=== PATIENT | male | born 1995 | race Caucasian/White ===

== ENCOUNTER 2017-02-18 13:21 | Emergency (ER) | payer SELFPAY ==
[2017-02-18 13:36] VITALS: BP 125/68
--- NOTE | 2017-02-18 13:47 | ED Physician Documentation ---
General Adult - HISTORIAN Historian: patient, spouse, child - HPI Stated Complaint: laceration Chief Complaint: Laceration/Recheck/Suture Additional Information: O'6 CM LAC LT INDEX FINGERANDO.5 CM LAC WEB BETWEEN FINGERS 4-5 WHEN PT HIT WALL W. FIST. DENIES OTHER INJURY Onset: hours (1) Timing: still present Severity: mild, moderate (MOD BLEEDING AFTERWARD) - ROS CONST: no problems EYES/ENT: none CVS/RESP: none GI/: none MS/SKIN/LYMPH: none NEURO/PSYCH: denies: headache, fainting, dizziness - PAST HX Past History: asthma Surgeries/Procedures: other (APPY) Allergies/Adverse Reactions: Allergies Allergy/AdvReac Type Severity Reaction Status Date / Time walnuts Allergy Uncoded 02/18/17 13:38 Home Medications: Ambulatory Orders Medication Instructions Recorded NK [NK] 03/22/16 - SOCIAL HX Smoking History: non-smoker Alcohol Use: occasionally Drug Use: none - FAMILY HX Family History: No - VITAL SIGNS Vital Signs: Vital Signs Temp Pulse Resp BP Pulse Ox 98.4 F 74 16 125/68 95 02/18/17 13:31 02/18/17 13:31 02/18/17 13:31 02/18/17 13:31 02/18/17 13:31 - REVIEWED ASSESSMENTS Nursing Assessment Reviewed: Yes Vitals Reviewed: Yes Procedures Wound Location: upper extremity (AREAS CLEANSE BETADINE EXP FOR BODY NONE FOUND. APROX W/ SKIN ADHESIVE. DIRK WELL. PT GIVEN TET IMMUN) Betadine Prep?: Yes Wound Repaired With: Dermabond Layer Closure?: No Sterile Dressing Applied?: Yes Splint Applied?: Yes Sling Applied?: No (NOT GET DIRTY OR WET FIR 3-4 DAYS) ED Results Lab/Radiology - Orders Orders: ED Orders Category Date Time Status Skin Adhesive NOW Care 02/18/17 13:45 Ordered Diph,Pertuss(Acell),Tet Vac/Pf [Adacel] Med 02/18/17 13:44 Once 0.5 ml IM .ONCE ONE General Adult Physical Exam - PHYSICAL EXAM GENERAL APPEARANCE: mild distress EENT: eye inspection normal NECK: normal inspection, supple RESPIRATORY: no resp distress, chest non-tender, breath sounds normal CVS: reg rate & rhythm, heart sounds normal ABDOMEN: soft, non-tender SKIN: warm/dry, normal color. No: cyanosis, diaphoresis, jaundice EXTREMITIES: normal range of motion, no edema NEURO: oriented X3, motor nml, sensation nml, mood/affect nml Discharge Clincal Impression: O. 5 AND O.6 CM LACRTHAND-HIT WALL Referrals: Primary Doctor,No [Primary Care Provider] - 2 Days Comments: KEEP CLEAN DRY Condition: Good Disposition: 01 HOME, SELF-CARE Decision to Admit: NO Decision Time: 13:53
[2017-02-18] MEDS: DIPH,PERTUSS(ACELL),TET VAC/PF 0.5 ML DISP.SYRIN IM ONE (13:53)
== END 2017-02-18 14:04 | disposition home or self-care (01) ==
LOC: ED 13:21
DX: S61.211A Laceration without foreign body of left index finger without damage to nail, initial encounter (principal); S61.412A Laceration without foreign body of left hand, initial encounter; X58.XXXA Exposure to other specified factors, initial encounter; Y93.9 Activity, unspecified; Y99.9 Unspecified external cause status
CPT/HCPCS: 12001; 90471; 90715; 99283

== ENCOUNTER 2017-04-11 21:10 | Emergency (ER) | payer SELFPAY ==
[2017-04-11] MEDS ORDERED: KETOROLAC TROMETHAMINE 30 MG/1ML VIAL IVP ONE (21:42)
--- NOTE | 2017-04-11 21:42 | ED Physician Documentation ---
Abdominal Pain - HISTORIAN Historian: patient - HPI Chief Complaint: Abdominal Pain Additonal Information: Patient states this AM he developed some lower abd cramping pain that tends to come and go. No precipitating factor noted. No modifying factor noted other then sometimes worse with standing. Has had some nausea but not vomiting. Has been dizzy at times with standing. Has been taking in fluids today. Patient denies any urinary discomfort or problems. Has been told that he has a right inguinal hernia but is not severe enough that he needs to have it repaired at this time. Patient has not had any fever or chills that he is aware of. He has not had any previous abd problems Onset: hours Duration: waxing, waning Timing: still present Context: denies: out of country travel, bad food Severity: moderate Quality: aching, cramping Associated Symptoms: none. denies: fever, chills Exacerbated by: other (standing) Relieved by: nothing Further Comments: no - ROS CONST: no problems GI/: denies: constipation, black stools, bloody urine, bloody stools, dark urine, problems urinating CVS/RESP: none. denies: shortness of breath MS/SKIN/LYMPH: denies: joint pain, rash - SOCIAL HX Smoking History: non-smoker Alcohol Use: occasionally Drug Use: none - FAMILY HX Family History: no significant history - PAST HX Past History: other (asthma as a child) Ischemic Bowel Risk Factors: none Other History: none Surgeries/Procedures: appendectomy Immunizations: referred to PCP Home Medications: Ambulatory Orders Medication Instructions Recorded NK [NK] 04/11/17 Allergies/Adverse Reactions: Allergies Allergy/AdvReac Type Severity Reaction Status Date / Time walnuts Allergy Uncoded 02/18/17 13:38 - VITAL SIGNS Vital Signs: Vital Signs Temp Pulse Resp BP Pulse Ox 98.4 F 89 16 119/57 97 04/11/17 21:11 04/11/17 21:11 04/11/17 21:11 04/11/17 21:11 04/11/17 21:11 - REVIEWED ASSESSMENTS Nursing Assessment Reviewed: Yes Vitals Reviewed: Yes ED Results Lab/Radiology - Lab Results Lab Results: Lab Results 04/11/17 04/11/17 22:00 22:00 WBC 10.90 K/ul K/ul (4.00-12.00) RBC 5.22 M/ul H M/ul (3.90-5.20) Hgb 15.7 g/dL g/dL (12.0-18.0) Hct 44.7 % % (37.0-53.0) MCV 85.6 fl fl (80.0-100.0) MCH 30.0 pg pg (28.0-34.0) MCHC 35.0 g/dL g/dL (30.0-36.0) RDW 12.9 % % (11.3-14.3) Plt Count 214 K/mm3 K/mm3 (130-400) Neut % (Auto) 85.3 % H % (39.0-79.0) Lymph % (Auto) 8.9 % L % (16.0-50.0) [place] % (Auto) 3.2 % % (0.0-11.0) Eos % (Auto) 1.3 % % (0.0-6.8) Baso % (Auto) 0.3 (0.0-1.5) Neut # (Auto) 9.3 # k/uL H # k/uL (1.4-7.7) Lymph # (Auto) 1.0 # k/uL # k/uL (0.6-4.0) [place] # (Auto) 0.4 # k/uL # k/uL (0.0-0.9) Eos # (Auto) 0.2 # k/uL # k/uL (0.0-0.6) Baso # (Auto) 0.0 # k/uL # k/uL (0.0-0.5) Reactive Lymphs % 1.0 % % (0.0-5.0) Reactive Lymphs # 0.1 # k/uL # k/uL (0.0-0.8) Sodium 135 mmol/L L mmol/L (136-145) Potassium 3.6 mmol/L mmol/L (3.5-5.1) Chloride 97 mmol/L L mmol/L (98-107) Carbon Dioxide 26 mmol/L mmol/L (22-30) BUN 15 mg/dL mg/dL (9-20) Creatinine 0.90 mg/dL mg/dL (0.66-1.25) Estimated Creat Clear 116 Est GFR ( Amer) > 60 (60 - ) Est GFR (Non-Af Amer) > 60 (60 - ) Glucose 93 mg/dL mg/dL (74-106) Calcium 9.4 mg/dL mg/dL (8.4-10.2) Total Bilirubin 1.2 mg/dL mg/dL (0.2-1.3) AST 24 U/L U/L (15-46) ALT 31 U/L U/L (13-69) Alkaline Phosphatase 54 U/L U/L (38-126) Total Protein 8.0 g/dL g/dL (6.3-8.2) Albumin 4.7 g/dL g/dL (3.5-5.0) - Orders Orders: ED Orders Category Date Time Status Place IV Lock 1T Care 04/11/17 22:29 Active ABD SERIES PA CHEST [RAD] Stat Exams 04/11/17 Completed CBC/PLATELET/DIFF Routine Lab 04/11/17 22:00 Completed CMP Routine Lab 04/11/17 22:00 Completed URINALYSIS Routine Lab 04/11/17 22:10 Received 0.9 % Sodium Chloride [Normal Saline] 1,000 ml Med 04/11/17 22:00 Ordered IV Q10H Ketorolac Tromethamine [Toradol] Med 04/11/17 21:42 Discontinued 30 mg IVP NOW ONE Abdominal Pain Physical Exam - Physical Exam General Appearance: alert, mild distress NECK: normal inspection, supple. No: lymphadenopathy, stiff neck RESPIRATORY: no resp distress, chest non-tender, breath sounds normal. No: wheezes, rales, rhonchi CVS: reg rate & rhythm, heart sounds normal, equal pulses, no murmur, no gallop ABDOMEN: soft, tenderness (mild diffuse in all 4 quadrants, a littl more prominent in the RLQ area), decreased BS. No: McBurney's point tenderne MALE GENITAL: normal genitalia, no hernia BACK: normal inspection, no CVA tenderness SKIN: warm/dry, normal color NEURO: oriented X3, mood/affect nml, cognition normal Vital Signs: Vital Signs Temp Pulse Resp BP Pulse Ox 98.4 F 89 16 119/57 97 04/11/17 21:11 04/11/17 21:11 04/11/17 21:11 04/11/17 21:11 04/11/17 21:11 Discharge Referrals: Primary Doctor,No [Primary Care Provider] - 2 Days
[2017-04-11] MEDS ORDERED: 0.9 % SODIUM CHLORIDE 1,000 ML IV ONE (21:47)
[2017-04-11] MEDS: 0.9 % SODIUM CHLORIDE 1,000 ML IV SCH ×2 (21:53→22:45)
[2017-04-11 22:06] LABS: BASOPHILS % 0.3 (0.0-1.5); EOSINOPHILS % 1.3 % (0.0-6.8); MEAN CORPUSCULAR VOLUME 85.6 fl (80.0-100.0); MONOCYTES % 3.2 % (0.0-11.0); NEUTROPHILS # 9.3 # k/uL (1.4-7.7)
[2017-04-11 22:22] LABS: APPEARANCE,URINE Clear (CLEAR); COLOR,URINE Yellow (YELLOW); OCCULT BLOOD,URINE Trace-intact (NEGATIVE)
[2017-04-11 22:25] LABS: eGFR (African) > 60; eGFR (Non-African) > 60
--- NOTE | 2017-04-11 22:49 | Diagnostic Imaging Report ---
ARIEL GARDNER [facility] [address] [facility] [address] [address] Report Submission Date: Apr 11, 2017 10:40:06 PM PIPER INSTALLER Patient Study Name: GENTRY PARIS Date: Apr 11, 2017 10:21:32 PM PIPER INSTALLER Modality Type: CR Gender: M Description: ABDOMEN : 89 Institution: [facility] Physician: ARIEL GARDNER Abdominal series with chest radiograph, 5 images History: Abdominal pain Findings: The bowel gas pattern is normal. There is no obstruction, free intraperitoneal air or pathologic calcification. Included chest radiograph is normal. Impression: Normal. Electronically signed on Apr 11, 2017 10:40:06 PM PIPER INSTALLER by: Kahlil KHAN
[2017-04-11] MEDS ORDERED: 0.9 % SODIUM CHLORIDE 100 ML IV ONE (23:31)
[2017-04-12 00:08] VITALS: BP 127/62
[2017-04-12] MEDS ORDERED: AZITHROMYCIN 250 MG TABLET PO SCH (09:00)
[2017-04-12] MEDS ORDERED: SULFAMETHOXAZOLE/TRIMETHOPRIM 1 EACH TABLET PO ONE (23:17)
== END 2017-04-11 23:55 ==
LOC: ED 21:10
DX: R10.9 Unspecified abdominal pain (principal)
CPT/HCPCS: 74022; 80053; 81002; 85025; 87086; 87801; J0696; J1885; J7030; 96361; 96374; 96375; 99283; S1016

== ENCOUNTER 2018-07-10 18:36 | Emergency (ER) | payer OTHER ==
[2018-07-10 18:59] LABS: MEAN CORPUSCULAR HEMOGLOBIN 30.3 pg (28.0-34.0)
[2018-07-10 19:00] LABS: BASOPHILS % 0.8 (0.0-1.5); EOSINOPHILS % 2.4 % (0.0-6.8); MONOCYTES % 3.3 % (0.0-11.0); NEUTROPHILS # 10.7 # k/uL (1.4-7.7)
--- NOTE | 2018-07-10 19:05 | ED Physician Documentation ---
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 Patient states he was feeling poorly this morning while at work with chills, sweats and headache. This evening he began to hyperventilate follow by numbness/tingling in his hands/feet with near syncope. Onset: hours (1) Timing: still present Severity: mild - ROS CONST: sweating, chills EYES/ENT: none CVS/RESP: shortness of breath GI/: none MS/SKIN/LYMPH: none NEURO/PSYCH: headache - PAST HX Past History: none Other History: none Surgeries/Procedures: none Allergies/Adverse Reactions: Allergies Allergy/AdvReac Type Severity Reaction Status Date / Time walnuts Allergy Uncoded 07/10/18 19:21 Home Medications: Ambulatory Orders Medication Instructions Recorded NK 07/10/18 - SOCIAL HX Smoking History: non-smoker Alcohol Use: none Drug Use: none - FAMILY HX Family History: No - VITAL SIGNS Vital Signs: Vital Signs Temp Pulse Resp BP Pulse Ox 127/62 04/12/17 00:05 - REVIEWED ASSESSMENTS Nursing Assessment Reviewed: Yes Vitals Reviewed: Yes Progress - EKG/XRAY/CT EKG: NSR Comments: 67 bpm ED Results Lab/Radiology - Lab Results Lab Results: Influenza A/B - Radiology Radiology Impressions: Report Submission Date: Jul 10, 2018 7:13:54 PM REHABILITATION MANAGER Patient Study Name: GENTRY PARIS Date: Jul 10, 2018 6:50:06 PM REHABILITATION MANAGER Modality Type: DX Gender: M Description: CHEST 2VIEW : 95 Institution: [facility] Physician: LUCERO SKAGGS CHEST 2VIEW CLINICAL HISTORY: CXR, NEAR SYNCOPE, PT STATES DIZZINESS TODAY AND WEAKNESS COMPARISON: None FINDINGS: There is no focal consolidation, pleural effusion, or pneumothorax. The cardiomediastinal silhouette is normal. The visible bony thorax is intact. IMPRESSION: No acute pulmonary process. Electronically signed on Jul 10, 2018 7:13:54 PM REHABILITATION MANAGER by: Yoel Recinos - Orders Orders: ED Orders Category Date Time Status Place IV Lock 1T Care 07/10/18 18:39 Active CHEST 2VIEW [RAD] Stat Exams 07/10/18 Ordered CBC/PLATELET/DIFF Routine Lab 07/10/18 18:48 Received CMP Routine Lab 07/10/18 18:48 Received INFLUENZA A&B Stat Lab 07/10/18 Uncollected EKG WITH COMPARISON Stat Ther 07/10/18 Ordered General Adult Physical Exam - PHYSICAL EXAM GENERAL APPEARANCE: anxious EENT: DONALD NECK: supple RESPIRATORY: no resp distress, chest non-tender, breath sounds normal CVS: reg rate & rhythm, heart sounds normal ABDOMEN: soft, normal bowel sounds, non-tender BACK: normal inspection SKIN: warm/dry EXTREMITIES: non-tender NEURO: oriented X3 Discharge Clincal Impression: Syncope, near Referrals: Primary Doctor,No [Primary Care Provider] - 2 Days Additional Instructions: 1. Drink plenty of fluids to maintain proper hydration. Avoid alcohol and caffeine 2. Tylenol and/or Ibuprofen as needed for pain 3. Follow up with PCP within 1 week 4. Return to ER for new or worsening symptoms. Condition: Stable Disposition: 01 HOME, SELF-CARE Decision to Admit: NO Date of Decison to Admit: 07/10/18 Decision Time: 19:44
[2018-07-10 19:12] LABS: eGFR (Non-African) > 60
[2018-07-10 20:01] VITALS: BP 111/57
--- NOTE | 2018-07-12 03:59 | Diagnostic Imaging Report ---
LUCERO SKAGGS [facility] [place] [facility] [address] [facility] [address] [place], [place]. [address] Report Submission Date: Jul 10, 2018 7:13:54 PM VOICE OVER ANNOUNCER Patient Study Name: GENTRY PARIS Date: Jul 10, 2018 6:50:06 PM VOICE OVER ANNOUNCER Modality Type: DX Gender: M Description: CHEST 2VIEW : 95 Institution: [facility] [place] [facility] Physician: LUCERO SKAGGS CHEST 2VIEW CLINICAL HISTORY: CXR, NEAR SYNCOPE, PT STATES DIZZINESS TODAY AND WEAKNESS COMPARISON: None FINDINGS: There is no focal consolidation, pleural effusion, or pneumothorax. The cardiomediastinal silhouette is normal. The visible bony thorax is intact. IMPRESSION: No acute pulmonary process. Electronically signed on Jul 10, 2018 7:13:54 PM VOICE OVER ANNOUNCER by: Yoel KHAN
== END 2018-07-10 19:55 | disposition home or self-care (01) ==
LOC: ED 18:36
DX: R55 Syncope and collapse (principal)
CPT/HCPCS: 36415; 71046; 80053; 85025; 87400; 99283; 99284

== ENCOUNTER 2018-08-23 21:48 | Emergency (ER) | payer OTHER ==
--- NOTE | 2018-08-23 22:06 | ED Physician Documentation ---
Flank Pain - HPI Stated Complaint: left side pain Chief Complaint: Flank Pain Additional Information: Patient presents to ED with a sudden onset of left flank pain and left lower quadrant pain. 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 He stopped to get ready for work when the pain began suddenly. He denies fever, chills, nausea/vomiting. Onset: hours (2) Duration: none Timing: still present Context: denies: out of country travel Severity: mild Quality: aching, dull, cramping Associated Symptoms: none. denies: fever Exacerbated by: upright position Relieved by: remaining still Further Comments: no - ROS CONST: no problems GI/: none CVS/RESP: none EYES/ENT: none MS/SKIN/LYMPH: none NEURO/PSYCH: none - SOCIAL HX Smoking History: non-smoker Alcohol Use: none Drug Use: none - FAMILY HX Family History: none - PAST HX Past History: none Ischemic Bowel Risk Factors: none Other History: none Surgeries/Procedures: appendectomy - VITAL SIGNS Vital Signs: Vital Signs Temp Pulse Resp BP Pulse Ox 97.2 F L 77 19 135/69 98 08/23/18 21:56 08/23/18 21:56 08/23/18 21:56 08/23/18 21:56 08/23/18 21:56 - REVIEWED ASSESSMENTS Nursing Assessment Reviewed: Yes Vitals Reviewed: Yes ED Results Lab/Radiology - Lab Results Lab Results: UA - trace blood, neg nitrate, neg leukocytes - Radiology Radiology Impressions: Report Submission Date: Aug 23, 2018 10:39:53 PM CDT Patient Study Name: GENTRY PARIS Date: Aug 23, 2018 10:12:10 PM CDT Modality Type: CT Gender: M Description: CT ABD PELVIS W/O CO : 95 Institution: [facility] Physician: LUCERO CASTILLO CT abdomen and pelvis without contrast Clinical history: Left-sided abdominal pain. Left flank pain. Technique: CT abdomen and pelvis is performed without oral or intravenous administration of contrast. Sagittal and coronal reconstructions were performed by the technologist. Findings: Visualized lung bases are clear. Liver and spleen demonstrate normal attenuation without focal defect. Gallbladder is contracted. There is no pancreatic or adrenal abnormality. The kidneys are of normal size, shape and position. There is no retroperitoneal mass or significant adenopathy. The appendix is visualized and is within normal limits. Gas and stool are present throughout the colon. Bladder is unremarkable. There is no free fluid in the pelvis or abdomen. Impression: 1. Contracted gallbladder. 2. Negative appendix. 3. Examination is limited without the use of contrast. Electronically signed on Aug 23, 2018 10:39:53 PM CDT by: Don Saldana - Orders Orders: ED Orders Category Date Time Status CT ABD & PELVIS W/O CON Stat Exams 08/23/18 Ordered UA W/MICRO IF INDICATED Routine Lab 08/23/18 22:03 Ordered Abdominal Pain Physical Exam - Physical Exam General Appearance: alert EENT: DONALD NECK: supple RESPIRATORY: no resp distress, chest non-tender, breath sounds normal CVS: reg rate & rhythm, heart sounds normal ABDOMEN: soft, normal bowel sounds, non-tender BACK: normal inspection, CVA tenderness (R), CVA tenderness (L) SKIN: warm/dry, normal color EXTREMITIES: non-tender, normal range of motion, no evidence of injury NEURO: oriented X3, motor nml, sensation nml Vital Signs: Vital Signs Temp Pulse Resp BP Pulse Ox 97.2 F L 77 19 135/69 98 08/23/18 21:56 08/23/18 21:56 08/23/18 21:56 08/23/18 21:56 08/23/18 21:56 Discharge Clincal Impression: Flank pain Referrals: Primary Doctor,No [Primary Care Provider] - 2 Days Additional Instructions: 1. Tylenol and/or Ibuprofen as needed for pain 2. Apply ice/heat to affected area as needed for comfort 3. Follow up with PCP within 1 week 4. Return to ER for new or worsening symptoms Condition: Stable Disposition: 01 HOME, SELF-CARE Decision to Admit: NO Date of Decison to Admit: 08/23/18 Decision Time: 22:46
[2018-08-23] MEDS: HYDROcodone /APAP 5/325 1 EACH TABLET PO ONE (22:23)
[2018-08-23 22:55] VITALS: BP 135/79
[2018-08-23 23:35] LABS: APPEARANCE,URINE CLOUDY (CLEAR); COLOR,URINE AMBER (YELLOW); OCCULT BLOOD,URINE TRACE-INTACT (NEGATIVE)
--- NOTE | 2018-08-24 06:49 | Diagnostic Imaging Report ---
LUCERO CASTILLO [facility] [address] [facility] [address] [place], [place]. [address] Report Submission Date: Aug 23, 2018 10:39:53 PM CDT Patient Study Name: GENTRY PARIS Date: Aug 23, 2018 10:12:10 PM CDT Modality Type: CT Gender: M Description: CT ABD PELVIS W/O CO : 95 Institution: [facility] Physician: LUCERO CASTILLO CT abdomen and pelvis without contrast Clinical history: Left-sided abdominal pain. Left flank pain. Technique: CT abdomen and pelvis is performed without oral or intravenous administration of contrast. Sagittal and coronal reconstructions were performed by the technologist. Findings: Visualized lung bases are clear. Liver and spleen demonstrate normal attenuation without focal defect. Gallbladder is contracted. There is no pancreatic or adrenal abnormality. The kidneys are of normal size, shape and position. There is no retroperitoneal mass or significant adenopathy. The appendix is visualized and is within normal limits. Gas and stool are present throughout the colon. Bladder is unremarkable. There is no free fluid in the pelvis or abdomen. Impression: 1. Contracted gallbladder. 2. Negative appendix. 3. Examination is limited without the use of contrast. Electronically signed on Aug 23, 2018 10:39:53 PM CDT by: Don KHAN
== END 2018-08-23 22:54 | disposition home or self-care (01) ==
LOC: ED 21:48
DX: R10.32 Left lower quadrant pain (principal)
CPT/HCPCS: 74176; 81002; 99283; 99284; A9270

== ENCOUNTER 2019-02-12 22:32 | Emergency (ER) | payer SELFPAY ==
--- NOTE | 2019-02-12 22:35 | ED Physician Documentation ---
Abdominal Pain - HISTORIAN Historian: patient - HPI Stated Complaint: mid abd pain since about 6 pm n/v/d Chief Complaint: Nausea,Vomiting,Diarrhea Onset: hours (6) Duration: constant Timing: still present Context: bad food (he is fearful pizza was "bad") Severity: moderate Quality: cramping Associated Symptoms: nausea, vomiting, diarrhea. denies: fever, chills Exacerbated by: other (on and off cramping ) Relieved by: nothing Further Comments: yes (HE states he got a pizza this evening and after eating at 530 pm he started to have mid abdomen cramping then severe nausea and vomiting with diarrhea (16 vomiting episodes) Denies any other complalints) - ROS CONST: no problems GI/: denies: constipation EYES/ENT: none MS/SKIN/LYMPH: none - SOCIAL HX Smoking History: cigarettes Alcohol Use: none Drug Use: none - FAMILY HX Family History: none - PAST HX Past History: none Ischemic Bowel Risk Factors: none Other History: none Immunizations: UTD Home Medications: Ambulatory Orders Medication Instructions Recorded NK 07/10/18 Allergies/Adverse Reactions: Allergies Allergy/AdvReac Type Severity Reaction Status Date / Time walnuts Allergy Uncoded 02/12/19 23:02 - VITAL SIGNS Vital Signs: Vital Signs Temp Pulse Resp BP Pulse Ox 98.9 F 84 18 135/67 99 02/12/19 22:32 02/12/19 22:32 02/12/19 22:32 02/12/19 22:32 02/12/19 22:32 - REVIEWED ASSESSMENTS Nursing Assessment Reviewed: Yes Vitals Reviewed: Yes Progress - Progress Progress: 2330: continued nausea and vomiting DG 0036: States he is feeling better is aware of results and plan DG ED Results Lab/Radiology - Radiology Radiology Impressions: CT abdomen and pelvis with contrast Clinical history: Abdominal pain for 1 day. Contrast administered: 90 mL of Omnipaque. Technique: CT abdomen and pelvis is performed with intravenous administration of contrast. Sagittal and coronal reconstructions were performed by the technologist. Comparison is made to a prior study dated 08/23/2018. Findings: Visualized lung bases are clear. The liver and spleen demonstrate normal attenuation without focal defect. Gallbladder is normally distended. There is no pancreatic or adrenal abnormality. The kidneys demonstrate symmetric enhancement. There is no retroperitoneal mass or significant adenopathy. Bladder is unremarkable. There is no free fluid in the pelvis or abdomen. There is increased fluid in the small bowel and increased liquid stool in the colon suggesting gastroenteritis. There is no evidence of obstruction and no significant free fluid in the pelvis or abdomen. Impression: 1. Increased fluid in the small bowel and increased liquid stool in the colon suggesting gastroenteritis. Electronically signed on Feb 12, 2019 11:33:01 PM CDT by: Don Saldana - Orders Orders: ED Orders Category Date Time Status IV Started NOW Care 02/12/19 22:[address] ABD & PELVIS W/ CON Stat Exams 02/12/19 Completed CBC/PLATELET/DIFF Stat Lab 02/12/19 22:52 Received CMP Stat Lab 02/12/19 22:52 Received UA W/MICRO IF INDICATED Routine Lab 02/12/19 22:38 Ordered 0.9 % Sodium Chloride [Normal Saline] 1,000 ml Med 02/12/19 22:39 Discontinued IV NOW Ketorolac Tromethamine [Toradol] Med 02/12/19 23:38 Discontinued 30 mg IV NOW ONE Ondansetron HCl/Pf [Zofran] Med 02/12/19 22:39 Discontinued 4 mg IVP NOW ONE Promethazine HCl [Phenergan] 25 mg Med 02/12/19 23:24 Discontinued 0.9 % Sodium Chloride [Normal Saline] 50 ml IV NOW Abdominal Pain Physical Exam - Physical Exam General Appearance: no acute distress, alert, mild distress EENT: eye inspection normal, no signs of dehydration NECK: normal inspection RESPIRATORY: no resp distress CVS: reg rate & rhythm, heart sounds normal ABDOMEN: soft, normal bowel sounds, no distension, non-tender. No: rigid, tenderness BACK: normal inspection, no CVA tenderness SKIN: warm/dry, normal color EXTREMITIES: non-tender NEURO: oriented X3 Vital Signs: Vital Signs Temp Pulse Resp BP Pulse Ox 98.9 F 84 18 135/67 99 02/12/19 22:32 02/12/19 22:32 02/12/19 22:32 02/12/19 22:32 02/12/19 22:32 Discharge Clincal Impression: Gastroenteritis Referrals: Primary Doctor,No [Primary Care Provider] - 2 Days Comments: 1. Clear liquid to bland diet 2. Zofran 4 mg take 1 by mouth every 8 hours as needed for nausea 3. See PCP in 2 days if no improvement 4. Increase fluids 5. Return to ER for any increasing concerns Condition: Stable Disposition: 01 HOME, SELF-CARE Decision to Admit: NO Date of Decison to Admit: 02/13/19 Decision Time: 00:41
[2019-02-12] MEDS ORDERED: ONDANSETRON HCL/PF 4 MG/ 2ML VIAL IVP ONE (22:39)
[2019-02-12] MEDS ORDERED: 0.9 % SODIUM CHLORIDE 1,000 ML IV ONE (22:39)
[2019-02-12] MEDS ORDERED: PROMETHAZINE HCL 25 MG in 0.9 % SODIUM CHLORIDE 50 ML IV ONE (23:24)
--- NOTE | 2019-02-12 23:36 | Diagnostic Imaging Report ---
TONY DOCKERY [facility] [address] [facility] [address] [place], [place]. [address] Report Submission Date: Feb 12, 2019 11:33:01 PM CDT Patient Study Name: GENTRY PARIS Date: Feb 12, 2019 11:12:54 PM CDT Modality Type: CT\SR Gender: M Description: CT ABD PELVIS W/ CON : 95 Institution: [facility] Physician: TONY DOCKERY CT abdomen and pelvis with contrast Clinical history: Abdominal pain for 1 day. Contrast administered: 90 mL of Omnipaque. Technique: CT abdomen and pelvis is performed with intravenous administration of contrast. Sagittal and coronal reconstructions were performed by the technologist. Comparison is made to a prior study dated 08/23/2018. Findings: Visualized lung bases are clear. The liver and spleen demonstrate normal attenuation without focal defect. Gallbladder is normally distended. There is no pancreatic or adrenal abnormality. The kidneys demonstrate symmetric enhancement. There is no retroperitoneal mass or significant adenopathy. Bladder is unremarkable. There is no free fluid in the pelvis or abdomen. There is increased fluid in the small bowel and increased liquid stool in the colon suggesting gastroenteritis. There is no evidence of obstruction and no significant free fluid in the pelvis or abdomen. Impression: 1. Increased fluid in the small bowel and increased liquid stool in the colon suggesting gastroenteritis. Electronically signed on Feb 12, 2019 11:33:01 PM CDT by: Don KHAN
[2019-02-12] MEDS ORDERED: KETOROLAC TROMETHAMINE 30 MG/1ML VIAL IV ONE (23:38)
[2019-02-13 01:00] VITALS: BP 128/64
[2019-02-13 06:59] LABS: eGFR (Non-African) > 60
[2019-02-13 07:00] LABS: BASOPHILS % 0.5 % (0.0-1.5); NEUTROPHILS # 11.7 # k/uL (1.4-7.7)
[2019-02-13 07:05] LABS: COLOR,URINE YELLOW (YELLOW)
[2019-02-13 07:06] LABS: APPEARANCE,URINE CLEAR (CLEAR); OCCULT BLOOD,URINE NEGATIVE (NEGATIVE); PH URINE 8.5 (5.0 - 8.0); UROBILINOGEN URINE 0.2 Eu (0.2-1.0)
== END 2019-02-13 00:50 | disposition home or self-care (01) ==
LOC: ED 22:32
DX: K52.9 Noninfective gastroenteritis and colitis, unspecified (principal)
CPT/HCPCS: 74177; 80053; 81002; 85025; 96361; 96374; 96375; 99284; J1885; J2405; J2550; J7030; Q9967; S1016

== ENCOUNTER 2019-03-19 08:19 | Emergency (ER) | payer SELFPAY ==
--- NOTE | 2019-03-19 08:51 | ED Physician Documentation ---
General Adult - HISTORIAN Historian: patient - HPI Stated Complaint: left arm pain Chief Complaint: Upper Extremity Problem (Left arm discomfort) Additional Information: 23 year old male presents with c/o left arm pain that has been going on for 3 days; he works at [employer] carrying [employer] and is c/o numbness and tingling to the left arm when he wakes up in the morning. He has not taken anything for it today. Discussed with patient about chiropractic and he stated "thats what the nurse mentioned at [employer]". She wanted to send him to their doctor. I explained that it would be [place] to do as the nurse instructed. Onset: days ago Timing: better (Gets better as he starts moving around) Severity: mild Modifying Factors: Repetetive work - ROS CONST: no problems EYES/ENT: none CVS/RESP: none GI/: none MS/SKIN/LYMPH: none NEURO/PSYCH: tingling, numbness (left arm/hand) - PAST HX Past History: none Other History: none Surgeries/Procedures: other (appy, hernia) Immunizations: UTD Allergies/Adverse Reactions: Allergies Allergy/AdvReac Type Severity Reaction Status Date / Time wal[place] Allergy Uncoded 03/19/19 08:30 Home Medications: Ambulatory Orders Medication Instructions Recorded Baclofen 10 mg PO BID PRN #20 tablet 03/19/19 predniSONE [Deltasone] 40 mg PO DAILY #10 tablet 03/19/19 - SOCIAL HX Smoking History: non-smoker Alcohol Use: occasionally Drug Use: none - FAMILY HX Family History: No - VITAL SIGNS Vital Signs: Vital Signs Temp Pulse Resp BP Pulse Ox 99.0 F 79 16 131/67 96 03/19/19 08:22 03/19/19 08:22 03/19/19 08:22 03/19/19 08:22 03/19/19 08:22 - REVIEWED ASSESSMENTS Nursing Assessment Reviewed: Yes Vitals Reviewed: Yes ED Results Lab/Radiology - Orders Orders: ED Orders Category Date Time Status Ketorolac Tromethamine [Toradol] Med 03/19/19 08:40 Discontinued 60 mg IM NOW ONE methylPREDNISolone ACETATE [DEPO-Medrol] Med 03/19/19 08:40 Discontinued 80 mg IM NOW STA General Adult Physical Exam - PHYSICAL EXAM GENERAL APPEARANCE: no distress EENT: eye inspection normal, ENT inspection normal, pharynx normal, DONALD NECK: normal inspection, supple RESPIRATORY: no resp distress, breath sounds normal CVS: heart sounds normal BACK: normal inspection SKIN: warm/dry, normal color EXTREMITIES: non-tender, normal range of motion, no evidence of injury, no edema NEURO: oriented X3, CN's nml as tested, motor nml, sensation nml, mood/affect nml, cognition normal Discharge Clincal Impression: Muscular pain Prescriptions: Baclofen 10 mg PO BID PRN #20 tablet PRN Reason: Muscle spasms predniSONE [Deltasone] 40 mg PO DAILY #10 tablet Referrals: Primary Doctor,No [Primary Care Provider] - 2 Days Additional Instructions: Take Prednisone 40 mg daily (start 03/20/19) Take Baclofen 10 mg by mouth twice a day as needed for muscle spasms Alternate Ibuprofen and Tylenol as needed for muscle pain Follow up with Nurse at [facility] for assistance with repetitive work. Condition: Good Disposition: 01 HOME, SELF-CARE Decision to Admit: NO Decision Time: 08:48
[2019-03-19] MEDS: KETOROLAC TROMETHAMINE 60 MG/2 ML VIAL IM ONE (08:54)
[2019-03-19] MEDS: methylPREDNISolone ACETATE 80 MG/ML VIAL IM STA (08:54)
[2019-03-19 09:06] VITALS: BP 105/65
== END 2019-03-19 09:00 | disposition home or self-care (01) ==
LOC: ED 08:19
DX: M79.602 Pain in left arm (principal)
CPT/HCPCS: 96372; 99283; 99284; J1040; J1885